=== PATIENT | male | born 1945 | race Caucasian/White ===

== ENCOUNTER 2016-11-10 21:13 | Inpatient (IN) | payer BC, MEDICARE ==
[~2016-11-10] VITALS: Ht 175.3 cm; Wt 90.3 kg
[~2016-11-10 21:13] MED LIST: ASPIRIN E.C. 8181 MG PO; DILANTIN 100MG100 MG PO; NITROSTAT0.4 MG/TAB SL; PHENOBARBITAL100 M1; PROTONIX 40MG T40 MG PO; XARELTO15 MG PO; XARELTO20 MG PO
[2016-11-10] MEDS ORDERED: LIPITOR20 MG PO (21:20)
[2016-11-10 22:39] LABS: BASO % 0.3 % (0.0-2.0); EOS # 0.1 (0.0-0.7); EOS % 0.5 % (0-4.0); GRAN # 11.1 (1.4-6.5); GRAN % 81.4 % (42.2-75.2); HEMATOCRIT 41.1 % (42.0-52.0); HEMOGLOBIN 14.3 g/dl (13.5-18.0); LYMPH # 1.5 (1.2-3.4); LYMPH % 11.2 % (20.0-51.0); MEAN CELL VOLUME 95 fl (80.0-100.0); MEAN CORPUSCULAR HEMOGLOBIN 33 pg (27.0-31.0); MEAN CORPUSCULAR HGB CONC 35 g/dl (33.0-37.0); MONO # 0.8 (0.1-0.6); MONO % 6.2 % (1.7-9.3); PLATELET COUNT 177 K/mm3 (130-400); RED BLOOD COUNT 4.32 M/mm3 (4.20-5.60); REDCELL DISTRIBUTION WIDTH-CV 12.4 % (11.5-14.5); WHITE BLOOD COUNT 13.6 K/mm3 (4.8-10.8)
[2016-11-10 22:44] LABS: PROTHROMBIN TIME 11.6 SECONDS (9.7-12.8)
[2016-11-10 22:47] LABS: PH 7 (5-8); SQUAMOUS EPITHELIAL None Seen /hpf; URINE APPEARANCE Clear; URINE BACTERIA None Seen /hpf; URINE BILIRUBIN Negative (NEGATIVE); URINE BLOOD 1+ (NEGATIVE); URINE COLOR Straw; URINE GLUCOSE Negative (NEGATIVE); URINE KETONE Negative (NEGATIVE); URINE RBC 0-2 /hpf; URINE UROBILINOGEN Negative (NEGATIVE); URINE WBC 0-2 /hpf
[2016-11-10 22:48] LABS: ADJUSTED CALCIUM 8.8 mg/dL (8.4-10.2); ALBUMIN 4.3 gm/dL (3.5-5.0); BILIRUBIN,TOTAL 0.5 mg/dL (0.0-1.0); CREATININE, serum 0.71 mg/dL (0.66-1.25); POTASSIUM 3.5 mmol/L (3.4-5.0); TOTAL PROTEIN 8.1 gm/dL (6.4-8.2)
[2016-11-11 01:13] VITALS: BP 111/61; PULSE 84; TEMP 97.4
[2016-11-11 04:42] LABS: HEMATOCRIT 37.7 % (42.0-52.0); MEAN CELL VOLUME 96 fl (80.0-100.0); MEAN CORPUSCULAR HEMOGLOBIN 33 pg (27.0-31.0); MEAN CORPUSCULAR HGB CONC 35 g/dl (33.0-37.0); MEAN PLATELET VOLUME 11.3 fl (7.4-10.4); PLATELET COUNT 153 K/mm3 (130-400); RED BLOOD COUNT 3.94 M/mm3 (4.20-5.60); REDCELL DISTRIBUTION WIDTH-CV 12.5 % (11.5-14.5); WHITE BLOOD COUNT 9.4 K/mm3 (4.8-10.8)
[2016-11-11 04:53] VITALS: BP 118/71; PULSE 79; TEMP 97.8
[2016-11-11 08:24] VITALS: BP 96/55; PULSE 69; TEMP 98.2
[2016-11-11 12:09] VITALS: BP 106/61; PULSE 85; TEMP 97.9
[2016-11-11 12:43] LABS: HEMOGLOBIN 12.6 g/dl (13.5-18.0)
[2016-11-11 12:44] LABS: HEMATOCRIT 36.7 % (42.0-52.0)
[2016-11-11 16:39] VITALS: BP 124/76; PULSE 87; TEMP 97.8
[2016-11-11 19:54] VITALS: BP 128/75; PULSE 99; TEMP 99
[2016-11-12 00:15] VITALS: BP 142/68; PULSE 95; TEMP 98.6
[2016-11-12 00:18] LABS: HEMATOCRIT 35.1 % (42.0-52.0)
[2016-11-12 04:01] VITALS: BP 138/84; PULSE 83; TEMP 98.9
[2016-11-12 08:17] VITALS: BP 123/74; PULSE 91; TEMP 98.1
[2016-11-12 12:07] LABS: HEMATOCRIT 34.3 % (42.0-52.0); HEMOGLOBIN 11.7 g/dl (13.5-18.0)
[2016-11-12 12:09] VITALS: BP 130/80; PULSE 99; TEMP 97.8
[2016-11-12 16:13] VITALS: BP 147/73; PULSE 92; TEMP 97.8
[2016-11-13 01:19] LABS: HEMOGLOBIN 12.2 g/dl (13.5-18.0)
[2016-11-13 01:20] LABS: HEMATOCRIT 35.4 % (42.0-52.0)
[2016-11-13 07:47] VITALS: BP 120/74; PULSE 85; TEMP 97.5
[2016-11-13 12:56] VITALS: BP 115/69; PULSE 92; TEMP 97.4
[2016-11-13 13:14] LABS: HEMATOCRIT 34.9 % (42.0-52.0); HEMOGLOBIN 11.8 g/dl (13.5-18.0)
[2016-11-13 16:00] VITALS: BP 127/64; PULSE 95; TEMP 97.4
[2016-11-13 20:53] VITALS: BP 119/57; PULSE 88; TEMP 97.7
[2016-11-14 00:25] VITALS: BP 124/73; PULSE 83; TEMP 97.6
[2016-11-14 05:14] VITALS: BP 134/79; PULSE 85; TEMP 98.3
[2016-11-14 09:49] VITALS: BP 115/52; PULSE 93; TEMP 98.1
[2016-11-14 12:24] VITALS: BP 114/62; PULSE 96; TEMP 97.1
[2016-11-14 15:55] VITALS: BP 130/73; PULSE 85; TEMP 99.2
[2016-11-14 20:37] VITALS: BP 115/65; PULSE 92; TEMP 97.7
[2016-11-15 00:33] VITALS: BP 125/79; PULSE 82; TEMP 97.9
[2016-11-15 03:35] VITALS: BP 126/54; PULSE 81; TEMP 98.5
[2016-11-15 07:33] VITALS: BP 113/74; PULSE 83; TEMP 98.2
[2016-11-15 11:35] VITALS: BP 114/59; PULSE 91; TEMP 97.3
[2016-11-15 15:42] VITALS: BP 118/62; PULSE 100; TEMP 99.1
[2016-11-15 20:00] VITALS: BP 110/44; PULSE 93; TEMP 98
[2016-11-16] VITALS (13 sets, daily range): BP systolic 105–161; BP diastolic 33–88; PULSE 73–101; TEMP 97.1–98.8
[2016-11-17 00:31] VITALS: BP 112/62; PULSE 92; TEMP 98.2
[2016-11-17 04:52] VITALS: BP 118/70; PULSE 91; TEMP 97.6
[2016-11-17 07:39] VITALS: BP 141/67; PULSE 95; TEMP 98.4
[2016-11-17 11:24] VITALS: BP 128/74; PULSE 85; TEMP 98.2
[2016-11-17 15:10] VITALS: BP 139/73; PULSE 92; TEMP 98.2
== END 2016-11-17 19:03 | DRG 511 ==
LOC: COL.ER 21:13 → MEDICAL 11-11 00:30
PROVIDERS: Emergency Medicine; Orthopaedic Surgery; Surgery
PROC: 0HQ1XZZ Repair Face Skin, External Approach (ICD-10-PCS; 2016-11-11)
PROC: 0PSH04Z Reposition Right Radius with Internal Fixation Device, Open Approach (ICD-10-PCS; principal; 2016-11-16 15:00)
DX: S52.571A Other intraarticular fracture of lower end of right radius, initial encounter for closed fracture (principal); S83.412A Sprain of medial collateral ligament of left knee, initial encounter; S72.412A Displaced unspecified condyle fracture of lower end of left femur, initial encounter for closed fracture; V09.9XXA Pedestrian injured in unspecified transport accident, initial encounter; S01.01XA Laceration without foreign body of scalp, initial encounter; Z86.718 Personal history of other venous thrombosis and embolism; Z79.01 Long term (current) use of anticoagulants; Z87.891 Personal history of nicotine dependence; S02.2XXA Fracture of nasal bones, initial encounter for closed fracture
CPT/HCPCS: A9284; C1713; J0690; J1100; J2270; J2405; J2704; J3010; J7030

== ENCOUNTER 2016-11-17 16:39 | Inpatient (IN) | payer OTHER, BC, MEDICARE ==
[~2016-11-17] VITALS: Ht 175.3 cm; Wt 89.9 kg
[~2016-11-17 16:39] MED LIST changes: +LIPITOR20 MG PO
--- NOTE | 2016-11-17 19:15 | NUR ---
PT ADMITTED TO ROOM 334 PER W/C FROM MEDICAL. PATIENT AWAKE AND ORIENTED X3. RT ARM IN SPLINT ELEVATED ON PILLOW. CMS WNL. IMMOBILIZER TO LLE. WEARS THIGH HIGH RONDA HOSE AT HOME. PT WANTS TO WEAR THOSE. FRIEND WILL BRING THOSE TOMORROW. PAIN LEVEL 2/10 OF RT WRIST. STERI STRIPS TO RT BROW CDI. ORIENTED TO ROOM AND IPR ROUTINE. REVIEWED SAFETY PLAN WITH BED ALARM AND CALL LIGHT.
[2016-11-17 19:24] VITALS: BP 138/63; PULSE 92; TEMP 99.7
[2016-11-18 05:13] VITALS: BP 135/72; PULSE 83; TEMP 98.5
[2016-11-18 05:18] VITALS: BP 135/72; PULSE 83; TEMP 98.5
[2016-11-18 06:14] VITALS: BP 135/72; PULSE 83; TEMP 98.5
--- NOTE | 2016-11-18 07:40 | NUR ---
Patient resting in bed with yellow gown on yellow slip proof socks on, bed alarm on, call light in reach. Patient pleasent mood. Patient's right hand is causing the most pain this morning. Was given PRN pain from last shift nurse.
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
--- NOTE | 2016-11-18 11:57 | NUR ---
First visit from the medical reception specialist. No spiritual needs.
[2016-11-18 18:09] VITALS: BP 120/59; PULSE 83; TEMP 98.6
--- NOTE | 2016-11-18 20:12 | NUR ---
Patient resting in recliner with legs elevated. Slip proof socks on, Immobilizer on left leg, casted right arm resting on pillow for comfort and ice packs on top and below casted arm. Patient reports some relief with ice application. PRN pain meds given through out the day to help tolerate therapy sessions. Patient tolerating diet well. Had friends over this afternoon and evening.
--- NOTE | 2016-11-18 20:30 | NUR ---
HAD VISITORS. WATCHING TV. NO COMPLAINTS AT THIS TIME. RT ARM ELEVATED ON PILLOWS. BRUISING & SWELLING TO RT HAND. FINGERS WARM. DENIES NUMBNESS OR TINGLING. IMMOBILIZER TO LLE. TOES WARM AND PINK- NO PAIN. CALL LIGHT AT BEDSIDE. BED ALARM SET.
--- NOTE | 2016-11-19 04:53 | NUR ---
PT HAS SLEPT MOST OF THE NIGHT. USES [facility]. REMINDED PT TO TURN IN BEDTO PREVENT BREAKDOWN. USING IS WITH GOOD TECHNIQUE. CALL LIGHT IN REACH. BED ALARM SET.
[2016-11-19 05:19] VITALS: BP 130/76; PULSE 86; TEMP 98.7
--- NOTE | 2016-11-19 08:18 | NUR ---
Pt denies dizziness, numbess, tingling, shortness of breath, pains in legs.
--- NOTE | 2016-11-19 13:29 | NUR ---
Spoke with pt about d/c placement & interest in Assisted Living Facility as a respite. Told him [facility] has respite apartments available at $165/day but [facility] does not have any respite apartments available. He is interested & would like to visit with [facility] Straightening Press Operator. Inquired if he has any questions/concerns at this time. He did not at this time. Contacted Anne at [facility]. Informed her of pt being interested in talking with her about the facility. Provided her with some referral information. She will contact MICHELE to arrange for a visit on 11/23/16.
--- NOTE | 2016-11-19 15:25 | NUR ---
Pt is very pleasant, humorous, A&O, cooperative. Enc IS, raises to 2000 ML with proper technique. Transfers out of bed and chair with CGA, gait belt, gripper socks in place, ambulates with platform walker, RUE in splint and danny wrap and NWB, LLE in immobilizer WBAT. Friends visiting today. Pt calls appropriately, not impulsive. Rt fingers swollen and bruised but CMS+. Abrasions to face.
[2016-11-19 16:51] VITALS: BP 124/64; PULSE 83; TEMP 97.6
--- NOTE | 2016-11-19 19:31 | NUR ---
Report to JOSE LUIS Combs.
--- NOTE | 2016-11-19 21:00 | NUR ---
Patient resting in bed with immobilizer on LLE and splint/danny RUE. RUE elevated on pillow and nurse assists to lift arm up and back down. Fingers light purple with some edema. Cap refill immediate. HS meds all reviewed and given. Denies need for pain med at this time. Uses urinal frequently and staff empties, Alert and oriented/pleasant. Watches TV.
--- NOTE | 2016-11-20 01:00 | NUR ---
Rests with eyes closed.
--- NOTE | 2016-11-20 02:46 | NUR ---
Continues resting with eyes closed.
[2016-11-20 04:25] VITALS: BP 116/75; PULSE 75; TEMP 98.8
--- NOTE | 2016-11-20 05:22 | NUR ---
PATIENT AWAKE AND DENIES NEED FOR PAIN MED AT THIS TIME. WILL TAKE JUST PRIOR TO THERAPY. SWAGING MACHINE ADJUSTER'S IN ASSISTING WITH ADL'S.
--- NOTE | 2016-11-20 07:45 | NUR ---
RIGHT SPEARS HAS A LACERATION NO DRAINAGE NOTED BUT IT IS PINK AROUND THE EDGES WILL APPLY TRIPLE ANTIBIOTIC OINTMENT TO THE AREA
--- NOTE | 2016-11-20 07:47 | NUR ---
PATIENT ASSESSMENT COMPLETED. REQUESTED PAIN PILL FOR THERAPY. HE DENIES QUESTIONS AT THIS TIME. HE IS UP IN THE WHEELCHAIR FOR BREAKFAST.
--- NOTE | 2016-11-20 12:28 | NUR ---
PATIENT AMBULATING IN THE HALLWAY WITH THERAPY. HE STATES HAVING A LITTLE PAIN IN THE RIGHT 5TH GOOD CAPILLARY REFILL DENIES NEED FOR MEDICATION AT THIS TIME.
--- NOTE | 2016-11-20 16:00 | NUR ---
PATIENT CONTINUES TO DECLINE TO GET INTO THE RECLINER IT IS MORE COMFORTABLE TO SIT IN THE WHEELCHAIR. HE DENIES FURTHER NEEDS
[2016-11-20 18:00] VITALS: BP 126/58; PULSE 94; TEMP 98
--- NOTE | 2016-11-20 20:30 | NUR ---
HS med reviewed and given. Abrasions brow and nose and right robins cleansed and DIMA applied. Patient up to the bathroom very slow with platform walker and has BM, manages all toileting tasks, appears to have difficulty focusing on tasks and has nurse rearranging multiple items in room. Denies pain. LLE and RUE elevated on pillows. Patient rested self slowly, with difficulty back in bed.
--- NOTE | 2016-11-20 23:00 | NUR ---
RESTS WITH EYES CLOSED.
--- NOTE | 2016-11-21 01:00 | NUR ---
RESTS WITH EYES CLOSED
--- NOTE | 2016-11-21 02:00 | NUR ---
AWAKE. URINALS EMPTY. DENIES NEEDS.
--- NOTE | 2016-11-21 03:00 | NUR ---
RESTS WITH EYES CLOSED.
[2016-11-21 05:15] VITALS: BP 110/54; PULSE 73; TEMP 98.3
--- NOTE | 2016-11-21 06:06 | NUR ---
CONTINUES RESTING WITH EYES CLOSED. HAS DENIED PAIN THROUGH NOC.
--- NOTE | 2016-11-21 08:56 | NUR ---
Report from JOSE LUIS Combs. Pt called to toilet, not impulsive, pleasant, A&O, SBA for transferring out of bed and ambulating to bathroom. Provided bath wipes for hygiene, assisted with lower body dressing, donning new briefs and pj pants, pt donned shirt independently and justino cares independently. Cleansed right robins abrasion that is reddened and with a moist scab, applied abx oint and silver gauze with a tegaderm. Pt cleansed face with warm washcloth, nurse applied abx oint to abrasions. Pt in wheelchair with pillow under rt arm and elevated leg rest to LLE, call light in reach, encouraged using IS.
[2016-11-21 15:59] VITALS: BP 131/67; PULSE 88; TEMP 97.4
--- NOTE | 2016-11-21 17:21 | NUR ---
Pt in wc eating supper, alarm on, call light in reach.
[2016-11-22 04:17] VITALS: BP 102/54; PULSE 73; TEMP 98.1
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
[2016-11-22 08:42] VITALS: BP 143/76; PULSE 87
--- NOTE | 2016-11-22 10:58 | NUR ---
Report from JOSE LUIS Engle. Pt's BP lower this morning, re-assessed. Pt denies any questions for the doctor today. Changed dressing to right robins and notified Dr. Escobar of improving redness around abrasion, will treat with triple abx oint and silver gauze with dressing. Encouraging IS. Pt denies pain. Ambulates with platform walker. Ice to RUE, splint dry and intact, brace to LLE. Pleasant, alert, cooperative.
[2016-11-22 17:56] VITALS: BP 125/64; PULSE 87; TEMP 97.7
--- NOTE | 2016-11-23 04:30 | NUR ---
The pt was up in his chair, watching TV as the shift began, called for assistance to the br. Had a med sf bm, assisted with aloe wipe, toilet hygiene. The pt wanted to get ready for bed, min assist. Pleasant. Denied pain or problem, but gradually over the eveing, the pain in his right upper arm(ache), elbow (goodwin), pinky finger (spasm). ice pack to upper and lower arm. talked with him, agreeable for Tramadol and Tylenol, settled in and slept in naps. brace to left lower extremity. CSM+ to both right fingers and left lower extremity. He is up with CGA to min assist. Gait is steady with good attention to safety and surroundings. He needs min assistance with ADL's such as opening containers, starting his clothing. uncapping toothpaste etc.
[2016-11-23 05:00] VITALS: BP 110/60; PULSE 75; TEMP 98.6
--- NOTE | 2016-11-23 10:19 | NUR ---
Follow-up visit; Patient thanked Coastal/Harbor Defense Officer for looking in on him and wishing him God's blessings. Coastal/Harbor Defense Officer will continue to look in on Urbano.
--- NOTE | 2016-11-23 11:27 | NUR ---
Spoke with pt about d/c planning. He is still interested in going to [facility]. Told him that someone from [facility] is suppose to come see him today to discuss their facility. Explained to pt his insurance is covered up today, so SW is going to talk with the therapists about how he is doing & what they are requesting regarding extending his stay. He seems fine with this. We talked about the r/walker w/ platform he is using. He does not have any equipment prior to this. Told him SW would work on getting one through his insurance. Pt has no questions/concerns at this time. Will continue to follow for support & d/c planning.
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
--- NOTE | 2016-11-23 15:00 | NUR ---
Patient is resting in recliner with legs elevated. Slip proof socks on, call light in reach and chair alarm on. Using his incentive spirometer frequently today showing good effort. Tolerating diet well. Family stopped by this afternoon.
[2016-11-23 17:12] VITALS: BP 110/54; PULSE 78; TEMP 98.6
--- NOTE | 2016-11-23 20:23 | NUR ---
Patient assessment completed, vital signs are stable, patient denies having pain at this time, he denies having any additional concerns, with assisstance he has gotten into bed, call light is in reach, will continue to monitor.
[2016-11-24 05:30] VITALS: BP 111/50; PULSE 66; TEMP 98
--- NOTE | 2016-11-24 06:10 | NUR ---
Patient has been sleeping/resting well through the night, vital signs this morning are stable, he has requested pain meds once for right arm pain, he has denied having any additional concerns through the night, call light is in reach, currently he is resting calmly in bed, will continue to monitor.
--- NOTE | 2016-11-24 14:41 | NUR ---
Follow-up greeting to Urbano; offering encouragement and blessings.
--- NOTE | 2016-11-24 15:00 | NUR ---
Patient is resting in wheelchair with both legs resting on the floor. Educated on need to elevate legs due to bilateral lower leg edema. He voiced understanding. Repositioned immobilizer as it sliped down on his leg. Wearing patel hose on right leg. Pain 0/10 this afternoon. Family visited today. Redness found on back of upper left thigh from brace rubbing against it. Placed a soft towel between brace and leg for tonight, but will look into getting some lambs wool for patient from therapy. Pleasent mood. Tolerating diet well. Has slip proof socks on, call light in reach and chair alarm on.
--- NOTE | 2016-11-24 15:38 | NUR ---
Reviewed Team Conference with pt. Explained to him about how he is doing functionally & that he can be Mod I in his room. He stated he understood & agreeed. Informed him of d/c for 11/26/16 with recommendations for home exercise program. We talked about needing a r/walker w/ platform & provided pt list of DME providers to review. Reminded pt of Devin ISLAS coming to visit with him this afternoon. He inquired about questions, so we discussed some possible questions. Pt had no other questions/concerns at this time. Will continue to follow for support & d/c planning.
[2016-11-24 17:39] VITALS: BP 115/70; PULSE 82; TEMP 98
--- NOTE | 2016-11-24 20:00 | NUR ---
Patient reports is inner buttucks feels chafed/powder applied. See assessment. Denies pain at this time. Sits up in wheelchair and encouraged/reminders of independence in room. Immobilizer LLE and splint RUE CDI. Nose and left face abrasions much improved/cleansed and DIMA applied.
--- NOTE | 2016-11-25 01:30 | NUR ---
Rests with eyes closed.
[2016-11-25 04:51] VITALS: BP 107/64; PULSE 69; TEMP 97.5
--- NOTE | 2016-11-25 04:56 | NUR ---
RESTS IN BED WITH EYES CLOSED.
--- NOTE | 2016-11-25 09:00 | NUR ---
Patient resting in wheelchair, slip proof socks on, call light within reach. Patient is Mod I in his room and uses a platform walker for ambulation. Patient is tolerating diet well. Pain 0/10 this shift. Pleasent mood. Visitors in the afternoon. Upon waking up this morning patient reported that he had some discomfort in his right arm from it not being elevated. Patient was educated on the need to put a pillow under the arm to provide more support. He voiced understanding.
--- NOTE | 2016-11-25 10:11 | NUR ---
Reviewed d/c plans for tomorrow, 11/26/16. Pt told SW that the visit with Bubba at [facility] went well. Inquired if he feels he is ready. He stated that he wishes he could stay here but understands & did state he feels he is getting around well enough. He did state that Rl worked with him on the mat from a flat surface & that it went fairly well. He also verbalized concerns about not having a w/c to elevate his leg at [facility]. Told him SW would talk with Rl, PT, about bed mobility & w/c. Reviewed with him about team recommending a r/walker w/ right platform. He decided he wanted to use [facility] & is also wanting a toll ticket clerk. Inquired if he has any other questions/concerns at this time, which he didn't. Will continue to follow for support & d/c planning.
--- NOTE | 2016-11-25 10:47 | NUR ---
Contacted [facility] & spoke w/ Annie. Equipment request made for milagro/rolan w/ right grubbs & gabriella. Faxed requested referral information.
--- NOTE | 2016-11-25 15:41 | NUR ---
Contacted Bubba at [facility]. She told SW that everything looks like it is a go for him to come tomorrow, 11/26/16. Asked some questions, which she answered. Will contact her tomorrow to work out d/c time & transportation. Spoke with pt about [facility] accepting him tomorrow. Answered his questions & he seems to be excited about going to [facility].
[2016-11-25 16:24] VITALS: BP 118/53; PULSE 97; TEMP 97.4
[2016-11-26 05:09] VITALS: BP 120/67; PULSE 83; TEMP 97.7
[2016-11-26] MEDS ORDERED: XARELTO20 MG PO (08:28)
[2016-11-26] MEDS ORDERED: GOOD SENSE TRIP1 OI1 TP (08:30)
[2016-11-26] MEDS ORDERED: COLACE 100100 MG/CAP PO (08:30)
[2016-11-26] MEDS ORDERED: MIRALAX PA17 GM/Dose PO (08:30)
[2016-11-26] MEDS ORDERED: TYLENOL 325MG325 MG PO (08:30)
[2016-11-26] MEDS ORDERED: ROXICODONE 55 MG/TAB PO (08:31)
--- NOTE | 2016-11-26 09:30 | NUR ---
Visited with pt about d/c today. He is a little anxious & nervous to go some where new w/ new staff. He also is concerned since he thinks he pulled a muscle in his side. Reassured him the staff at [facility] will help him.
--- NOTE | 2016-11-26 12:01 | NUR ---
Rasheed franklin/ Devin here to complete their assessment. Pt is approved to come to [facility] this afternoon, which is arranged for milk pickup driver at 4:30 pm. Provided her a list of medications, which she inquired if there is a script for the narcotic. Told her there is & inquired about how to get it to [email or web address]. She stated she would be driving by [email or web address] & would gladly drop it off. Provided her with the script for the Roxicodone. Informed nursing.
--- NOTE | 2016-11-26 17:17 | NUR ---
Pt discharged to [facility]
--- NOTE | 2016-11-26 22:59 | NUR ---
Patient Health Summary, Discharge Summary, and Home Med list printed and reviewed with patient and Bubba from [facility]. Stressed importance of follow up appointments, Bubba asked pt if he needed transportation getting to appts and facility can offer. Reviewed medications and printed prescription for oxycodone was picked up by facility DON and sent to pt's pharmacy per ISREAL Waddell director. Belongings gathered by pt and TRACY Bear including glasses, wallet, and dressing supplies for right robins and facial abrasions, tended to prior to discharge. Pt toileted, then transported via wheelchair by nurse and assisted into front passenger seat of facility van, immobilizer in place, NWB to E. Seatbelted in for ride. Pt states he is borrowing platform walker from rehab. Pt denied any questions.
== END 2016-11-26 17:10 | DRG 561 ==
PROVIDERS: ADMIT Internal Medicine
DX: S72.432D Displaced fracture of medial condyle of left femur, subsequent encounter for closed fracture with routine healing (principal); S52.501D Unspecified fracture of the lower end of right radius, subsequent encounter for closed fracture with routine healing; G40.909 Epilepsy, unspecified, not intractable, without status epilepticus; Z87.891 Personal history of nicotine dependence; V03.10XD Pedestrian on foot injured in collision with car, pick-up truck or van in traffic accident, subsequent encounter
CPT/HCPCS: 99222-AI; 99232-AI; 99239

== ENCOUNTER → 2018-12-18 | Outpatient (CLI) | payer MEDICARE, BC ==
[~2018-12-18] MED LIST changes: +COLACE 100100 MG/CAP PO; +GOOD SENSE TRIP1 OI1 TP; +MIRALAX PA17 GM/Dose PO; +ROXICODONE 55 MG/TAB PO; +TYLENOL 325MG325 MG PO
== END ==
LOC: COL.RAD 06:24
DX: F17.201 Nicotine dependence, unspecified, in remission (principal)